=== PATIENT | male | born 1950 | race Caucasian/White ===

== ENCOUNTER 2018-05-07 19:06 | Emergency (ER) | payer BC ==
[2018-05-07 19:14] VITALS: BP 170/102
--- NOTE | 2018-05-07 19:38 | EDPHY ---
H & P Stated Complaint: Fall, hit head, L shoulder pain Time Seen by Provider: 05/07/18 19:27 HPI/ROS: CHIEF COMPLAINT: Mechanical fall, head injury, headache, mild shoulder injury HISTORY OF PRESENT ILLNESS: Patient tripped at a local hotel falling forward striking his head on a wall. He presents to the ED with complaints of headache and slight shoulder discomfort. The patient has a history of hypertension and diabetes. He denies any history of coronary artery disease. He denies any antecedent chest pain, palpitations or shortness of breath. The patient denies neck pain, chest pain, back pain, lower extremity complaints or additional traumatic injury. The patient does have a history of chronic shoulder injury. In the emergency department he is able to range his shoulder without significant discomfort. REVIEW OF SYSTEMS: A comprehensive 10 point review of systems is otherwise negative aside from elements mentioned in the history of present illness. Source: Patient Exam Limitations: No limitations - Personal History Current Tetanus Diphtheria and Acellular Pertussis (TDAP): Yes Tetanus Vaccine Date: 2016 - Medical/Surgical History Hx Asthma: No Hx Chronic Respiratory Disease: No Hx Diabetes: Yes Hx Cardiac Disease: Yes Hx Renal Disease: No Hx Cirrhosis: No Hx Alcoholism: No Hx HIV/AIDS: No Hx Splenectomy or Spleen Trauma: No Other PMH: HTN, DM 2, Possible CHF, - Social History Smoking Status: Never smoked - Physical Exam Exam: General Appearance: Alert, no distress Head: A forehead abrasion and soft tissue swelling noted Eyes: Pupils equal, round, reactive ENT, Mouth: No hemotympanum, no oral trauma Neck: Nontender, trachea midline Respiratory: No chest wall tender, no subcutaneous air, lungs clear bilaterally Cardiovascular: Regular rate and rhythm Abdomen: Abdomen is soft and nontender, pelvis stable Skin: No lacerations, No abrasion Back: No midline T/L/S pain Extremities: Mild tenderness to palpation over the left trapezius muscle, normal range of motion noted of the left shoulder. No clinical evidence of fracture involving the shoulder for left upper extremity Neurological: A&Ox3, normal motor function, normal sensory exam Constitutional: Initial Vital Signs Temperature (C) 36.8 C 05/07/18 19:11 Heart Rate 70 05/07/18 19:11 Respiratory Rate 18 05/07/18 19:11 Blood Pressure 170/102 H 05/07/18 19:11 O2 Sat (%) 95 05/07/18 19:11 O2 Delivery Mode Room Air Allergies/Adverse Reactions: No Known Allergies Allergy (Unverified 05/07/18 19:11) Home Medications: Medication Instructions Recorded Atorvastatin Calcium 05/07/18 Hydrochlorothiazide 05/07/18 Lexapro 05/07/18 Lisinopril 05/07/18 Metformin HCl 05/07/18 Potassium Acetate 05/07/18 Medical Decision Making ED Course/Re-evaluation: The patient presents to the ED after mechanical fall which resulted in a head injury. The patient presents to the ED with complaints of a moderate headache and a forehead hematoma. Given his age and complaints a CT scan of head was ordered to evaluate for intracranial hemorrhage. CT scan of the head demonstrates no evidence of skull fracture or intracranial hemorrhage. Patient has a GCS of 15. I have cleared the patient's cervical spine via nexus criteria. The patient has clinical evidence of a shoulder strain without evidence of a bony fracture. The patient will be discharged home with customary aftercare instructions and return precautions. Differential Diagnosis: Differential diagnosis considered includes intracranial hemorrhage, facial bone fracture, skull fracture, concussion Departure - Departure Disposition: [facility] Inpatient Acute Clinical Impression: Facial contusion Qualifiers: Encounter type: initial encounter Qualified Code(s): S00.83XA - Contusion of other part of head, initial encounter Left shoulder strain Qualifiers: Encounter type: initial encounter Qualified Code(s): S46.912A - Strain of unspecified muscle, fascia and tendon at shoulder and upper arm level, left arm , initial encounter Condition: Good Instructions: Facial Contusion (ED) Additional Instructions: 1. Take Ibuprofen or Motrin 600 mg by mouth three times a day. 2. Your CT scan demonstrates no evidence of a intracranial hemorrhage or skull fracture. 3. Return to the ED for worsening headache, new pain, numbness, weakness or other concerns.
== END 2018-05-07 20:00 | disposition still patient (30) ==
DX: S46.912A Strain of unspecified muscle, fascia and tendon at shoulder and upper arm level, left arm, initial encounter (principal); S00.83XA Contusion of other part of head, initial encounter; E11.9 Type 2 diabetes mellitus without complications; I10 Essential (primary) hypertension; W01.0XXA Fall on same level from slipping, tripping and stumbling without subsequent striking against object, initial encounter; Y92.59 Other trade areas as the place of occurrence of the external cause; Y93.9 Activity, unspecified; Y99.9 Unspecified external cause status